=== PATIENT | female | born 1990 | race Two or more races ===

== ENCOUNTER 2019-08-29 17:41 | Emergency (ER) | payer OTHER ==
[~2019-08-29] VITALS: Ht 162.6 cm; Wt 70.3 kg
[2019-08-29] MEDS ORDERED: ONDANSETRON ODT 4 MG TAB.RAPDIS SL ONE (18:00)
[2019-08-29] MEDS ORDERED: PANTOPRAZOLE SODIUM 40 MG TABLET.DR PO ONE ×2 (18:00→18:06)
[2019-08-29] MEDS ORDERED: LIDOCAINE VISCUS 2% 15 ML UDC MM ONE (18:00)
[2019-08-29] MEDS ORDERED: MAG HYDROX/AL HYDROX/SIMETH 30 ML LIQUID UDC PO ONE (18:00)
[2019-08-29] MEDS ORDERED: MAG HYDROX/AL HYDROX/SIMETH 30 ML LIQUID UDC ONE (18:04)
[2019-08-29] MEDS ORDERED: ONDANSETRON ODT 4 MG TAB.RAPDIS ONE (18:05)
[2019-08-29] MEDS ORDERED: LIDOCAINE VISCUS 2% 15 ML UDC ONE (18:05)
[2019-08-29 18:06] LABS: *URINE HCG, QUAL NEGATIVE (NEGATIVE)
--- NOTE | 2019-08-29 19:06 | NUR ---
PT WAS EVALUATED BY DR ABRAMS. PT WAS D/C'd TO HOME. D/C INSTRUCTIONS GIVEN TO THE PT.
[2019-08-29 19:08] VITALS: BP 131/77
== END 2019-08-29 19:08 | disposition home or self-care (01) ==
LOC: ER 17:43
DX: K29.70 Gastritis, unspecified, without bleeding (principal)
CPT/HCPCS: 84703; A4663; Q0162

== ENCOUNTER 2019-12-26 18:06 | Emergency (ER) | payer OTHER ==
[~2019-12-26] VITALS: Ht 162.6 cm; Wt 70.3 kg
[~2019-12-26 18:06] MED LIST: OMEP20TA20 PO
[2019-12-26] MEDS ORDERED: HYDR-4384 PO (18:25)
[2019-12-26] MEDS ORDERED: ONDA4TAB5 PO (18:25)
[2019-12-26] MEDS ORDERED: METR-147 PO (18:25)
--- NOTE | 2019-12-26 18:39 | NUR ---
PT IS IN ROOM #2A. DR HOOVER EVALUATED THE PT.
[2019-12-26 19:14] LABS: BASOPHILS % (AUTO) 0.3 % (0.0-2.0); CREATININE 1.1 mg/dL (0.6-1.3); EOSINOPHILS # (AUTO) 0.1 K/uL (0.0-0.7); EOSINOPHILS % (AUTO) 0.4 % (0.0-7.0); HEMOGLOBIN 8.2 g/dL (10.9-14.3); LYMPHOCYTES % (AUTO) 6.1 % (20.5-51.5); MEAN CORPUSCULAR HEMOGLOBIN 28.5 uug (24.7-32.8); MEAN CORPUSCULAR HGB CONC 33 g/dL (32.3-35.6); MEAN CORPUSCULAR VOLUME 86.7 fL (75.5-95.3); MONOCYTES # (AUTO) 0.6 K/uL (2.0-10.0); MONOCYTES % (AUTO) 3.6 % (0.0-11.0); NEUTROPHILS # (AUTO) 14.1 K/uL (1.8-8.9); NEUTROPHILS % (AUTO) 89.6 % (38.5-71.5); PLATELET COUNT (AUTO) 872 K/uL (179-408); RED BLOOD CELL COUNT(AUTO) 2.88 MIL/uL (3.63-4.92); WHITE BLOOD COUNT (AUTO) 15.7 K/uL (3.8-11.8)
[2019-12-26 19:16] LABS: *BILIRUBIN,URIN NEGATIVE (NEGATIVE); *BLOOD, URINE 3+ (NEGATIVE); *KETONES,URINE NEGATIVE (NEGATIVE); *UROBILINOGEN,URINE 0.2 E.U./dl (NORMAL); LEUKOCYTE ESTERASE ,URINE 1+ (NEGATIVE); NITRITE, URINE NEGATIVE (NEGATIVE); UGLUCOSE NEGATIVE (NEGATIVE)
[2019-12-26 19:18] LABS: *URINE HCG, QUAL POSITIVE (NEGATIVE)
[2019-12-26 19:26] LABS: *CLARITY,URINE HAZY (CLEAR); *COLOR,URINE YELLOW (YELLOW)
[2019-12-26 19:27] LABS: BACTERIA,URINE FEW /HPF (NONE SEEN); MUCUS,URINE FEW /LPF (0-FEW); SQUAMOUS EPITHELIAL CELL,UR MODERATE /HPF (NONE SEEN)
[2019-12-26 19:29] LABS: BILIRUBIN,DIRECT 0.1 mg/dL (0.0-0.2); BILIRUBIN,TOTAL 0.4 mg/dL (0.2-1.0)
[2019-12-26] MEDS ORDERED: MORPHINE SULFATE 4 MG/1 ML DISP.SYRIN IM ONE (19:45)
[2019-12-26] MEDS ORDERED: MORPHINE SULFATE 4 MG/1 ML DISP.SYRIN ONE (19:46)
--- NOTE | 2019-12-26 20:03 | NUR ---
Dr. Bourgeois at bedside for pelvic exam, chapperoned by Coating Technician Marion SORIA.
--- NOTE | 2019-12-26 20:13 | NUR ---
Ultrasound at bedside.
[2019-12-26] MEDS ORDERED: CEFTRIAXONE 1 G VIAL IM ONE (21:15)
[2019-12-26] MEDS ORDERED: CEFTRIAXONE 1 G VIAL ONE (21:38)
[2019-12-26] MEDS ORDERED: ACETAMINOPHEN 325 MG TABLET ONE (21:53)
--- NOTE | 2019-12-26 21:53 | NUR ---
Patient discharged to home in stable condition. Written and verbal after care instructions given. Patient verbalizes understanding of instructions. Stressed follow up or return to ER for worsening s/s. Patient ambulated out of ER with steady gait, no acute signs of distress, VSS, all belongings taken.
[2019-12-26 21:54] VITALS: BP 132/71
== END 2019-12-26 21:55 | disposition home or self-care (01) ==
LOC: ER 18:12
DX: R10.9 Unspecified abdominal pain (principal); O03.9 Complete or unspecified spontaneous abortion without complication; R30.0 Dysuria
CPT/HCPCS: 36415; 76856; 80048; 80076; 81001; 83690; 84702; 84703; 85025; 87040 ×2; 87070; 87081; 87086; 87110; 87210; 96372 ×2; 99284; J0696; J2270; A4663

== ENCOUNTER 2021-11-25 03:19 | Emergency (ER) | payer OTHER ==
[~2021-11-25] VITALS: Ht 162.6 cm; Wt 68.0 kg
[~2021-11-25 03:19] MED LIST changes: +HYDR-4384 PO; +METR-147 PO; +ONDA4TAB5 PO
--- NOTE | 2021-11-25 03:38 | NUR ---
Dr Lindquist at bedside, MSE in progress.
[2021-11-25] MEDS ORDERED: MECLIZINE HCL 25 MG TABLET PO ONE (03:45)
[2021-11-25] MEDS ORDERED: HYDROCODONE/APAP 5-325MG TABLET PO ONE (03:45)
[2021-11-25] MEDS ORDERED: ONDANSETRON ODT 4 MG TAB.RAPDIS SL ONE (03:45)
[2021-11-25] MEDS ORDERED: HYDROCODONE/APAP 5-325MG TABLET ONE (03:48)
[2021-11-25] MEDS ORDERED: ONDANSETRON ODT 4 MG TAB.RAPDIS ONE ×2 (03:48→03:49)
[2021-11-25] MEDS ORDERED: MECLIZINE HCL 25 MG TABLET ONE (03:48)
[2021-11-25 04:01] LABS: HEMATOCRIT 45.1 % (31.2-41.9); MEAN CORPUSCULAR HEMOGLOBIN 31.9 uug (24.7-32.8); MEAN CORPUSCULAR VOLUME 92.6 fL (75.5-95.3); PLATELET COUNT (AUTO) 442 K/uL (179-408)
[2021-11-25 04:08] LABS: CREATININE 0.9 mg/dL (0.6-1.3)
[2021-11-25 04:14] LABS: BILIRUBIN,TOTAL 0.1 mg/dL (0.2-1.0); TOTAL PROTEIN, SERUM 7.4 g/dL (6.4-8.2)
--- NOTE | 2021-11-25 04:22 | NUR ---
pt returned from CT.
[2021-11-25] MEDS ORDERED: ONDA4TAB5 PO (06:10)
[2021-11-25] MEDS ORDERED: LORA-259 PO (06:10)
[2021-11-25] MEDS ORDERED: MECL-159 PO (06:10)
[2021-11-25] MEDS ORDERED: OXYC-128 PO (06:12)
[2021-11-25 06:23] VITALS: BP 122/75
--- NOTE | 2021-11-25 06:23 | NUR ---
Patient discharged to home in stable condition. Written and verbal after care instructions given. Patient verbalizes understanding of instructions. Stressed follow up or return to ER for worsening s/s.
== END 2021-11-25 06:24 | disposition home or self-care (01) ==
LOC: ER 03:31
DX: R42 Dizziness and giddiness (principal); G44.309 Post-traumatic headache, unspecified, not intractable; F07.81 Postconcussional syndrome; Z20.822 Contact with and (suspected) exposure to COVID-19; K21.9 Gastro-esophageal reflux disease without esophagitis; Z79.899 Other long term (current) drug therapy
CPT/HCPCS: 36415; 70450; 72125; 85025; 85610; A4663; J8597; Q0162

== ENCOUNTER 2023-01-20 11:14 | Emergency (ER) | payer OTHER ==
[~2023-01-20] VITALS: Ht 162.6 cm; Wt 68.0 kg
[~2023-01-20 11:14] MED LIST changes: +LORA-259 PO; +MECL-159 PO; +OXYC-128 PO
--- NOTE | 2023-01-20 11:44 | NUR ---
SEEN AND EXAMINED BY
[2023-01-20] MEDS ORDERED: ONDANSETRON 4 MG/2 ML VIAL IV ONE ×2 (11:45→16:00)
[2023-01-20] MEDS ORDERED: IV NORMAL SALINE 1000 ML BAG IV ONE ×2 (11:45→13:45)
[2023-01-20] MEDS ORDERED: MORPHINE SULFATE 2 MG/1 ML DISP.SYRIN IV ONE (11:45)
[2023-01-20] MEDS ORDERED: MORPHINE SULFATE 4 MG/1 ML DISP.SYRIN ONE (11:52)
[2023-01-20] MEDS ORDERED: ONDANSETRON 4 MG/2 ML VIAL ONE (11:52)
[2023-01-20 11:59] LABS: *BILIRUBIN,URIN NEGATIVE (NEGATIVE); *BLOOD, URINE NEGATIVE (NEGATIVE); *CLARITY,URINE CLEAR (CLEAR); *COLOR,URINE YELLOW (YELLOW); *KETONES,URINE NEGATIVE (NEGATIVE); LEUKOCYTE ESTERASE ,URINE TRACE (NEGATIVE); NITRITE, URINE NEGATIVE (NEGATIVE); PH,URINE 8.5 (5.0-8.0); UGLUCOSE NEGATIVE (NEGATIVE)
[2023-01-20 12:04] LABS: *URINE HCG, QUAL NEGATIVE (NEGATIVE)
--- NOTE | 2023-01-20 12:19 | NUR ---
IV 20g inserted on L hand
[2023-01-20 12:24] LABS: HEMATOCRIT 45.5 % (31.2-41.9); MEAN CORPUSCULAR HEMOGLOBIN 31.2 uug (24.7-32.8); MEAN CORPUSCULAR VOLUME 91.4 fL (75.5-95.3); PLATELET COUNT (AUTO) 423 K/uL (179-408)
--- NOTE | 2023-01-20 12:27 | NUR ---
ua and blood collected and sent to lab
[2023-01-20 12:46] LABS: BACTERIA,URINE MODERATE /HPF (NONE SEEN); RBC,URINE 0-3 /HPF (0-3); SQUAMOUS EPITHELIAL CELL,UR MANY /HPF (NONE SEEN); WBC,URINE 20-50 /HPF (0-3)
[2023-01-20 12:50] LABS: BILIRUBIN,DIRECT 0.1 mg/dL (0.0-0.2); BILIRUBIN,TOTAL 0.6 mg/dL (0.2-1.0); CREATININE 0.9 mg/dL (0.6-1.3); POTASSIUM 4.3 mmol/L (3.5-5.1); TOTAL PROTEIN, SERUM 7.6 g/dL (6.4-8.2)
[2023-01-20] MEDS ORDERED: HYDROMORPHONE 1 MG/1 ML DISP.SYRIN ONE (13:06)
[2023-01-20] MEDS ORDERED: CEFTRIAXONE /D5W 50ML IVPB **ER PYXIS IV ONE (13:06)
[2023-01-20] MEDS ORDERED: HYDROMORPHONE 1 MG/1 ML DISP.SYRIN IV ONE (13:15)
[2023-01-20] MEDS ORDERED: CEFTRIAXONE 1 G in IV DEXTROSE 5% 50 ML IV ONE (13:15)
[2023-01-20] MEDS ORDERED: SWABABLE VALVE TRANSFER SET EA MC ONE (13:53)
[2023-01-20] MEDS ORDERED: IOHEXOL 300MG/ML 100 ML INFUS..BTL ONE (13:53)
[2023-01-20] MEDS ORDERED: IV NORMAL SALINE 250 ML IV ONE (13:53)
--- NOTE | 2023-01-20 14:13 | NUR ---
CT scan in process
[2023-01-20] MEDS ORDERED: AMOX-430 PO (15:39)
[2023-01-20] MEDS ORDERED: TRAM50TA2 PO ×2 (15:39→15:41)
[2023-01-20 15:41] VITALS: BP 127/70; TEMP 97; O2SAT 100
== END 2023-01-20 15:55 | disposition home or self-care (01) ==
LOC: ER 11:14
DX: K52.9 Noninfective gastroenteritis and colitis, unspecified (principal); N39.0 Urinary tract infection, site not specified; K21.9 Gastro-esophageal reflux disease without esophagitis; Z79.899 Other long term (current) drug therapy
CPT/HCPCS: 99285; 74177; 96365; 96375; 76705; 96361; 80076; 80048; 81001; 84703; 83690; 85025; 87040 ×3; 36415; 83605; J0696; J2405; Q9967; J1170; J2270; J7040 ×2; A4663

== ENCOUNTER 2023-02-07 01:34 | Emergency (ER) | payer OTHER ==
[~2023-02-07] VITALS: Ht 162.6 cm; Wt 63.5 kg
[~2023-02-07 01:34] MED LIST changes: +AMOX-430 PO; +TRAM50TA2 PO
--- NOTE | 2023-02-07 01:58 | NUR ---
Dr. Lindquist evaluating patient at bedside. MSE in progress.
[2023-02-07 02:02] LABS: *BILIRUBIN,URIN NEGATIVE (NEGATIVE); *BLOOD, URINE 1+ (NEGATIVE); *KETONES,URINE TRACE (NEGATIVE); LEUKOCYTE ESTERASE ,URINE 3+ (NEGATIVE); NITRITE, URINE POSITIVE (NEGATIVE); UGLUCOSE TRACE (NEGATIVE)
[2023-02-07 02:04] LABS: *CLARITY,URINE HAZY (CLEAR); *COLOR,URINE DARK YELLOW (YELLOW)
[2023-02-07 02:06] LABS: WBC,URINE 50-80 /HPF (0-3)
[2023-02-07 02:07] LABS: *URINE HCG, QUAL NEGATIVE (NEGATIVE); BACTERIA,URINE MANY /HPF (NONE SEEN); SQUAMOUS EPITHELIAL CELL,UR FEW /HPF (NONE SEEN)
[2023-02-07 02:14] LABS: HEMATOCRIT 42.2 % (31.2-41.9); MEAN CORPUSCULAR HEMOGLOBIN 31.3 uug (24.7-32.8); MEAN CORPUSCULAR VOLUME 93.2 fL (75.5-95.3); PLATELET COUNT (AUTO) 383 K/uL (179-408)
[2023-02-07] MEDS ORDERED: CEFTRIAXONE /D5W 50ML IVPB **ER PYXIS IV ONE (02:14)
[2023-02-07] MEDS ORDERED: HYDROMORPHONE 1 MG/1 ML DISP.SYRIN ONE ×3 (02:14→03:52)
[2023-02-07] MEDS ORDERED: ONDANSETRON 4 MG/2 ML VIAL ONE (02:14)
[2023-02-07] MEDS ORDERED: ONDANSETRON 4 MG/2 ML VIAL IV ONE (02:15)
[2023-02-07] MEDS ORDERED: CEFTRIAXONE 1 G in IV DEXTROSE 5% 50 ML IV ONE (02:15)
[2023-02-07] MEDS ORDERED: HYDROMORPHONE 1 MG/1 ML DISP.SYRIN IV ONE ×3 (02:15→03:45)
[2023-02-07 02:26] LABS: CREATININE 1.1 mg/dL (0.6-1.3); POTASSIUM 4.3 mmol/L (3.5-5.1)
[2023-02-07 02:32] LABS: BILIRUBIN,DIRECT 0.1 mg/dL (0.0-0.2); BILIRUBIN,TOTAL 0.2 mg/dL (0.2-1.0); TOTAL PROTEIN, SERUM 7.5 g/dL (6.4-8.2)
[2023-02-07] MEDS ORDERED: diphenhydrAMINE 50 MG/1 ML VIAL ONE (03:00)
[2023-02-07] MEDS ORDERED: diphenhydrAMINE 50 MG/1 ML VIAL IV ONE (03:00)
--- NOTE | 2023-02-07 03:04 | NUR ---
Patient taken to CT via gurney accompanied by rena. Patient in stable condition, no signs of distress noted.
[2023-02-07] MEDS ORDERED: IOHEXOL 300MG/ML 100 ML INFUS..BTL ONE (03:09)
[2023-02-07] MEDS ORDERED: SWABABLE VALVE TRANSFER SET EA MC ONE (03:09)
[2023-02-07] MEDS ORDERED: IV NORMAL SALINE 250 ML IV ONE (03:11)
[2023-02-07] MEDS ORDERED: IV NORMAL SALINE 1000 ML BAG IV ONE (03:45)
--- NOTE | 2023-02-07 04:06 | NUR ---
Ultrasound at bedside.
[2023-02-07] MEDS ORDERED: NITR-84 PO (04:25)
[2023-02-07] MEDS ORDERED: HYDR-4275 PO (04:25)
[2023-02-07] MEDS ORDERED: ONDA4TAB5 PO (04:25)
[2023-02-07] MEDS ORDERED: CEPH500T PO (04:25)
--- NOTE | 2023-02-07 04:36 | NUR ---
Patient discharged to home in stable condition. Written and verbal after care instructions given. Patient verbalizes understanding of instructions. Stressed follow up or return to ER for worsening s/s. Addendum: 02/07/23 at 0438 by GALDINO Intructed patient not to drive.
[2023-02-07 04:38] VITALS: BP 125/85; TEMP 98.5; O2SAT 99
== END 2023-02-07 04:38 | disposition home or self-care (01) ==
LOC: ER 01:36
DX: N12 Tubulo-interstitial nephritis, not specified as acute or chronic (principal); K21.9 Gastro-esophageal reflux disease without esophagitis; Z79.2 Long term (current) use of antibiotics; Z79.899 Other long term (current) drug therapy
CPT/HCPCS: 99285; 74177; 96365; 96375; 76856; 96361; 80076; 80048; 81001; 84703; 83690; 85025; 36415; 96376; J0696; J1200; J2405; Q9967; J1170 ×3; J7040; A4663